=== PATIENT | male | born 1975 | race Caucasian/White ===

== ENCOUNTER 2018-10-20 11:36 | Day surgery (SDC) | payer OTHER ==
[~2018-10-20] VITALS: Ht 177.8 cm; Wt 84.1 kg
[2018-10-20] MEDS ORDERED: REMICADE V100 MG/VIA IV (12:08)
[2018-10-20 12:33] VITALS: BP 139/82; PULSE 85; TEMP 97.4
[2018-10-20 13:50] VITALS: BP 135/83; PULSE 50; TEMP 97.3
--- NOTE | 2018-10-20 13:50 | NUR ---
PATIENT BACK FROM ENDO SUITE AFTER COLONOSCOPY. PATIENT AWAKE AND ALERT. JUST ARRIVED AT BEDSIDE. VS APPEAR STABLE. WILL GET DRINK FOR PATIENT. DR. FRIEDMAN COMING TO ROOM AT THIS TIME TO TALK TO PATIENT.
[2018-10-20 14:00] VITALS: BP 121/83; PULSE 46
--- NOTE | 2018-10-20 14:00 | NUR ---
PATIENT RESTING IN CHAIR, AT BEDSIDE, VS APPEAR STABLE, NO N/V WITH DRINK. WILL CONTINUE TO MONITOR.
[2018-10-20 14:15] VITALS: BP 126/83; PULSE 48
--- NOTE | 2018-10-20 14:15 | NUR ---
PATIENT ALERT AND ORIENTED, STATES HE IS TIRED. VS APPEAR STABLE. WILL DISCHARGE PATIENT.
== END 2018-10-20 14:31 | disposition home or self-care (01) ==
LOC: SDCO 11:36
DX: Z12.11 Encounter for screening for malignant neoplasm of colon (principal); Z86.010 Personal history of colon polyps; D12.3 Benign neoplasm of transverse colon; K56.699 Other intestinal obstruction unspecified as to partial versus complete obstruction; K50.90 Crohn's disease, unspecified, without complications; D50.9 Iron deficiency anemia, unspecified; Z87.891 Personal history of nicotine dependence
CPT/HCPCS: J2250; J2405; J3010; J7030